=== PATIENT | female | born 1985 | race Caucasian/White ===

== ENCOUNTER → 2019-08-23 08:03 | Outpatient (CLI) | payer SELFPAY ==
--- NOTE | 2019-08-23 08:13 | US_ITS ---
STUDY: ABDOMINAL ULTRASOUND - RIGHT UPPER QUADRANT REASON FOR VISIT: Female, 34 years old abn lft''s TECHNIQUE: Ultrasound evaluation of the right upper quadrant was performed with real-time and static razo-scale imaging. TECHNICAL QUALITY: Adequate. COMPARISON: None. FINDINGS: Liver: The liver measures 15.2 cm. There is normal echogenicity of the liver. The bile ducts are within normal limits. There is hepatic color flow. The direction of portal flow is hepatopetal. There is no demonstrated mass lesion. Gallbladder: Normal distended gallbladder. The gallbladder wall measures 2.7 mm. There is a negative sonographic Beavers''s sign. There is no pericholecystic fluid. There are multiple echogenic structures within the gallbladder, consistent with multiple gallstones. Common Bile Duct (C.B.D.): The common bile duct measures 2.9 mm. Pancreas: Normal size of the head, body and tail of the pancreas. There is normal echogenicity of the pancreas. There is no demonstrated pancreatic mass or cyst. Right Kidney: Normal size of the right kidney. The right kidney measures 10.4 cm x 5.5 cm x 3.6 cm. Normal renal cortex. The right cortex measures 1.0 cm. There is no demonstrated renal mass or cyst. There is no right hydronephrosis. US/Abdomen Limited IMPRESSION: Multiple gallstones. Electronically Signed: Cleve Calderon, at 15:01 EST , Service support ,
== END ==
PROVIDERS: Family Provider Family Medicine; PCP Family Medicine; Referring Provider Family Medicine; Visit Provider Family Medicine
DX: R94.5 Abnormal results of liver function studies (principal)
CPT/HCPCS: 76705

== ENCOUNTER 2019-09-24 10:27 | Day surgery (SDC) | payer SELFPAY ==
--- NOTE | 2019-08-30 02:54 | HP_ITS ---
Intake Vital Signs 08/30/19 BP 119/78 08/30/19 Blood Pressure Location Lt brachial 08/30/19 Position Sitting 08/30/19 Height 5 ft 2 in 08/30/19 Weight: 100 lb 2 oz 08/30/19 BMI 18.3 08/30/19 BP 145/90 H 08/30/19 Blood Pressure Location Lt brachial 08/30/19 Position Sitting 08/30/19 Respiration 16 08/30/19 Pulse 64 08/30/19 Pulse Oximetry (%) 100 Intake Visit Reasons: Gallstones US on 08/23 Chief Complaint: gallstones Marketing Coordinator Required: No Is patient in pain?: No Allergies diphenhydramine HCl [From Benadryl] Adverse Reaction (Intermediate, Verified 08/30/19 08:56) Other APPLES Allergy (Uncoded 06/15/16 11:14) Itching Medications Sertraline HCl [Zoloft] 50 mg PO DAILY 05/07/14 [History Confirmed 08/30/19] levothyroxine 125 mcg capsule 62.5 mcg PO DAILY cap 08/30/19 [History] Is last menstrual period known: No Post menopausal: No Patient : No [facility] Medical History (Updated 08/30/19 @ 14:46 by Rei Kulkarni MD) Abnormal liver function tests (Acute) Cholelithiasis with chronic cholecystitis (Chronic) Gallstones (Acute) Migraine (Acute) Hemorrhoid (Acute) Anxiety (Acute) Hypothyroid (Acute) Surgical History (Updated 08/30/19 @ 08:52 by Brenda Marsh) History of loop electrical excision procedure (LEEP) (Acute) Family History (Updated 08/30/19 @ 08:55 by Brenda Marsh) Mother Thyroid disorder Graves' disease Social History (Updated 08/30/19 @ 14:54 by Rei Kulkarni MD) Smoking Status: Never smoker HPI HPI HPI: LIZBET MORRIS, is a 34 F who presents to the office today for surgical consultation regarding abnormal liver function tests and gallstones. The patient is referred by Dr. Workman and a written copy of my surgical consult and recommendations will return to him. 34-year-old female. She presents with her today. She has had 2 pregnancies and deliveries. A year ago she felt the need to lose weight so through dieting and exercise she apparently lost 35 pounds. She then had trouble stabilizing her weight. She is on thyroid replacement and she had concerns as to whether she was over replaced. By her report an adjustment was made. In further inspection looking for potential source of weight loss laboratory was obtained on August 24, 2019 showing an AST of 64 and ALT of 157 both slightly elevated. Albumin was 4.9 alkaline phosphatase 70. ALT 91 AST 52 total bilirubin 0.03. Hepatitis panel was negative for a B and C. Her white count was 4.8 with a hemoglobin 12.8 hematocrit 39.4 platelet count 185,000. TSH was 1.8. At the [facility] on August 23, 2019 a right upper quadrant ultrasound was obtained. Multiple gallstones are noted. The common bile duct is 2.9 mm. She is being referred for consideration of gallbladder and gallstones as potential etiology to her liver function test abnormality. HPI HPI Surgical H&P: Yes HPI: LIZBET MORRIS, is a 34 F who presents to the office today for ROS General General: Yes weight change; no appetite, fatigue, colon cancer, breast cancer or weakness HEENT HEENT: No difficulty swallowing, eye injury, eye surgery, swollen glands or hoarseness Endo Endocrine: Yes thyroid disease; no diabetes mellitus, thyroid cancer, Hair loss, heat intolerance or cold intolerance Cardio Cardiovascular: No murmur, pacemaker, heart disease, atrial fibrillation, high blood pressure, heart attack, heart stent, palpitations, shortness of breat with exertion or chest pain Psych Psychiatric: Yes anxiety; no depression or hearing voices Resp Respiratory: No shortness of breath, No sleep apnea, No cough, No COPD, No asthma, No emphysema, No wheezing Gastro Gastrointestinal: No abdominal pain, No nausea or vomiting, No diarrhea, No constipation, No blood in stool, No acid reflux, Yes hemorrhoids, No ulcers, Yes gallbladder problem, No black,tarry stools Jose Hematologic: No blood thinners, No blood disorders, No bleeding, No anemia, No blood clots Neuro Neurologic: No weakness Exam Const General: cooperative, healthy appearing Nutritional Appearance: underweight Orientation: alert, awake Other: Slightly anxious, underweight, no acute distress, not jaundiced HENMT Head: normal to inspection Resp Effort & Inspection: normal respiratory effort Auscultation: clear to auscultation bilaterally Cardio Rate: regular rate Rhythm: regular rhythm Heart Sounds: no murmurs GI Palpation: soft, no hepatosplenomegaly Skin General: no rashes or lesions noted Neuro Cognition: normal cognition Extrem General: no calf tenderness bilaterally Psych Affect: anxious affect Assessment & Plan Problems 1. Calculus of gallbladder with chronic cholecystitis without obstruction K80.10 2. Abnormal liver function tests R94.5 Plan We had an extensive discussion regarding treatment options. I have made it very clear to the patient that I do not believe that it is likely that her multiple gallstones are etiologic to her mild liver function test abnormality. We discussed benefit, risk, alternatives to laparoscopic cholecystectomy selective cholangiograms. I did suggest that if we pursue the operation that we also pursue a ultrasound-guided needle core biopsy at that time to facilitate her medical care by Dr. Workman. She is aware of the potential risks and complications of surgery. She is aware the potential risks and complications of nonoperative management. She is been on Zoloft for at least 10 years. Whether this could be contributing is unknown. I have some question as to whether her view of her body size and habitus is abnormal. She states that when she eats she just simply feels like she gets full easily. She denies bulimia. She has had an opportunity to ask and have questions answered. We will schedule and proceed at her discretion. I very much appreciate the kind opportunity of assisting with her surgical care. CC: Dr. Jacinta Kulkarni M.D., F.A.C.S. Coding Level of Care Code 36932 Diagnoses Calculus of gallbladder with chronic cholecystitis without obstruction K80.10 ??Cholelithiasis location: gallbladder ??Biliary obstruction: without biliary obstruction Abnormal liver function tests R94.5 08/30/19 [id number] <Electronically signed by Rei carter MD> Date _ Rei Kulkarni MD I have re-examined the patient. There are no clinical changes since date of exam.
[2019-08-30 08:56] VITALS: BMI 18.3
[2019-09-24 11:03] VITALS: PULSE 83; RESP 16; TEMP 36.4; O2SAT 100; BMI 18.3
--- NOTE | 2019-09-24 11:07 | EKG12_ITS ---
Test Reason : SB Blood Pressure : / mmHG Vent. Rate : 067 BPM Atrial Rate : 067 BPM P-R Int : 158 ms QRS Dur : 078 ms QT Int : 396 ms P-R-T Axes : 074 077 077 degrees QTc Int : 418 ms Normal sinus rhythm Nonspecific ST abnormality Abnormal ECG No previous ECGs available Confirmed by JUMA PRICE, KIMI ([id number]), rewrite editor TRE PORRAS ([id number]) on 09/29/2019 1:01:38 PM Referred By: Rei Kulkarni Confirmed By:KIMI DENNISON MD
[2019-09-24] MEDS: Lactated Ringers 1,000 ML 100 ML IV (11:12)
[2019-09-24 11:25] LABS: Hematocrit 38.5 % (37-47); Hemoglobin 12.7 g/dL (12.0-15.0); Mean Corpuscular Hgb 30.1 pg (27.0-32.0); Mean Corpuscular Volume 91.2 fL (81-99); Mean Platelet Vol. 11.1 fl (6.2-12.0); Platelet Count 176 K/mm3 (150-450); RBC Distribution Width CV 12.1 % (11.6-14.6); RBC Distribution Width SD 40.2 fl (35.1-43.9); Red Blood Count 4.22 M/mm3 (4.2-5.4); White Blood Count 3.8 K/mm3 (4.4-11.0)
[2019-09-24 11:29] LABS: Internal QC Validated? YES +Cl - CLEAR BKGD; Pregnancy, Urine Negative Negative
[2019-09-24 11:30] LABS: International Normalized Ratio 1.2; Prothrombin Time (Protime)PT. 14.7 SECONDS (11.7-14.9)
[2019-09-24 11:31] LABS: Partial Thromboplast Time 28.2 Seconds (24.1-36.2)
[2019-09-24 12:16] LABS: Bedside Glucose 95 mg/dL (70-110)
--- NOTE | 2019-09-24 12:36 | PCM.DC.GS ---
Discharge Diet: Light diet - advance as tolerated - if you have questions about your diet instructions, please talk to you doctor. Discharge Activity: May Not Drive - for 5 days or while taking narcotic pain medicine. May shower in (days): 1 Lifting Restrictions: 10 pounds Call your doctor if your incision/area has: Continuous Slow Oozing, Sudden Increased Bleeding, Increased Pain/ Swelling, Increased Redness, Foul Smelling Discharge Call your doctor if you observe: Fever of 101 or Higher Suture Line Care: Avoid Pulling/Pushing, Avoid Pinching/Bending Additional Dressing/Incision Instructions:: Change or remove dressing in 4 days. Leave steri-strips in place for 1 week. Allergies/Adverse Reactions: Allergies diphenhydramine HCl [From Benadryl] Adverse Reaction (Intermediate, Verified 09/24/19 11:02) Other CONFUSION APPLES Allergy (Uncoded 09/24/19 11:02) Itching EARS ITCHING AND THROAT ITCHING Medications to take at Discharge Sertraline HCl [Zoloft] 50 mg PO QHS 05/07/14 levothyroxine 125 mcg capsule 62.5 mcg PO DAILY cap 08/30/19 Tretinoin/Emol 9/Skin Cleansr1 [Tretin-X 0.1% Combo Pack] 1 ea TP DAILY PRN 09/17/19 Hydrocodone Bitart/Apap 5-325 [[place] 5MG-325MG] 1 tablet PO Q6H PRN PRN 2 Days #5 tablet 09/24/19 The following prescriptions were given: Hydrocodone Bitart/Apap 5-325 [[place] 5MG-325MG] 1 tablet PO Q6H PRN PRN 2 Days #5 tablet PRN Reason: Pain Transmission Status: Sent to [facility]/pharmacy #[id number] Primary Care Physician: Nathan Workman MD [Primary Care Provider] - Test Results: Test results from this visit will be discussed in further detail at your follow-up appointment, if applicable. Please Follow Up With: Rei Kulkarni MD - [phone] When: Call to make an appointment to be seen in about 10 days.
[2019-09-24] MEDS: Cefazolin 2 GM in 0.9% Normal Saline 100 ML IV (12:55)
--- NOTE | 2019-09-24 13:05 | RAD_ITS ---
CLINICAL HISTORY: Female, 34 years old. Cholecystectomy PROCEDURE: CHOLANGIOGRAM - intraoperative FLUOROSCOPY TIME (if supplied): (16) seconds, a cine loop of the cholangiogram was recorded. Placement of the catheter and the procedure were performed by: Dr. Kulkarni Fluoroscopy was provided by SARA Bush , who was present in the room time of the procedure. TECHNIQUE: (All elements of maximal sterile barrier technique followed, including US elements as applicable) After cholecystectomy, cystic duct remnant was cannulized, and contrast injected into the cystic duct remnant retrograde manner. There is normal flow of contrast distally through the common bile duct into the duodenum and retrograde into the common hepatic duct. No ductal dilatation or obstruction noted. No extravasation of contrast outside the biliary tree noted. RAD/Cholangiogram/ O R,Initial IMPRESSION: Normal intraoperative cholangiogram Electronically Signed: Rickey Salguero MD at 8:16 EST , Service support ,
--- NOTE | 2019-09-24 13:05 | GALL_PTH ---
PATIENT: LIZBET MORRIS LOC: [facility] [place] U#:[id number] AGE/SX: 34/F ROOM: RE09/24/[address]: Dr. Rei Kulkarni MD : 1985 BED: DIS: 09/24/2019 SPEC #: [id number] RECD: 09/24/19 14:28 STATUS: NEEL DONNY #: [id number] SHONDA: 09/24/19 13:[address]: Rei Kulkarni DEPT: SURGICAL PATHOLOGY RECD BY: Liam Scott ENTERED: 09/27/19 12:33 SP TYPE: RUTH LOUISE DR: Dr. Nathan Workman MD Tissues: A - Gallbladder, NOS B - Liver, NOS Procedures: PAS with Diastase (control) Trichrome (control) Special Stain Group II PAS Stain (control) Surgery Specimen Level III Surgery Specimen Level V Retic (control) Iron Stain (control) HEADER OPERATION: Laparoscopic cholecystectomy with IOC PRE-OP DIAGNOSIS: Calculus of gallbladder with chronic cholecystitis; abnormal liver function tests TISSUE SUBMITTED: A - Gallbladder, B - Liver biopsy MICROSCOPIC DIAGNOSIS A. Gallbladder, cholecystectomy: Chronic cholecystitis and cholelithiasis. A pericystic lymph node with reactive changes. B. Liver, core biopsy: Liver parenchymal tissue with mild focal microvesicular steatosis and minimal portal chronic inflammation. See microscopic description and comment. SJ:javon 09/28/19 COMMENT Correlation with clinical, laboratory studies and appropriate follow up are necessary. Case has been reviewed in consultation with Dr. Muhammad who concurs with the above diagnosis. IDC:AM MICROSCOPIC DESCRIPTION Slides are reviewed. B. The specimen shows liver parenchymal tissue with preserved lobular architecture. Hepatocytes show focal mild microvesicular steatosis and mild reactive changes. Significant lobular inflammation is not seen. A few portal areas are noted with minimal chronic inflammation. Piecemeal necrosis is not seen. Iron stain shows absent iron. PAS stain with and without diastase do not show any abnormal accumulation of protein. Reticulin and trichrome stains do not show significant fibrosis. All stains are performed with appropriate matched controls. GROSS DESCRIPTION A - Received is one container labeled with the patient's name and designated gallbladder. The specimen consists of a gallbladder measuring 8 cm in length and 3.5 cm in diameter. The external surface is pink-rodriguez, smooth and glistening for the most part. Focally it is granular, hemorrhagic and contains cautery artifact. The gallbladder contains a small amount of green-yellow mucoid bile and distended with multiple multifaceted yellowish stones and stone fragments measuring in aggregate 6 x 6 x 2 cm and 0.1 to 1 cm in greatest dimension. A few of the stones are also present in the cystic duct. The mucosa is bile-stained and without any mass lesions. The gallbladder wall measures 0.1 cm in thickness. Present adjacent to the cystic duct is a rodriguez-pink nodule, a possible lymph node, measuring 0.5 cm in greatest dimension. Marketing Communications Manager sections from the gallbladder and the cystic duct including entire possible lymph node are submitted in one cassette. B - Received in fixative is one container labeled with the patient's name and designated liver biopsy. The specimen consists of an elongated piece of rodriguez-pink soft tissue measuring 1.5 cm in length and 0.1 cm in diameter. The entire specimen is submitted in one cassette. / JOSHUA:javon 09/27/19 TC:3 CPT: 19863, 16284, 03627 x5
[2019-09-24] MEDS: Bupivacaine Mpf 0.5% 30 ML VIAL (14:00)
--- NOTE | 2019-09-24 14:12 | OP.PCM_ITS ---
Problem List (1) Cholelithiasis with chronic cholecystitis Status: Chronic Qualifiers: Cholelithiasis location: gallbladder Biliary obstruction: without biliary obstruction Qualified Code(s): K80.10 - Calculus of gallbladder with chronic cholecystitis without obstruction (2) Abnormal liver function tests Status: Acute Report of Operation Date of Procedure: 09/24/19 Pre-Operative Diagnosis: Chronic cholecystitis, cholelithiasis, abnormal liver function tests Post-Operative Diagnosis: Same Surgery/Procedure Performed:: Laparoscopic cholecystectomy with cholangiograms. Ian-Cut right lobe needle core biopsy Description of Surgical Findings:: Timeout and informed consent was obtained. 34-year-old female was taken to the operating room placed on the table underwent general endotracheal intubation anesthesia. Ancef 2 g given intravenously preoperatively. The abdomen was sterilely prepped and draped. 0.5% Marcaine was used as a local anesthetic. Skin sites were pre-anesthetized. Throughout the procedure total 30 cc was used. A vertical infraumbilical incision was created holding sutures of 0 Vicryl placed varies needle inserted saline drop test performed the abdomen was insufflated CO2 to a pressure of 10 mmHg pressure. To me trocar inserted hemianopsia inserted no concern trocar injuries direct physician 5 m ports were placed in the epigastric right upper quadrant and right lateral upper quadrant. The abdomen is inspected no evidence of any superficial abnormalities the gallbladder was noted to have multiple gallstones within. The hepatocystic angle was completely dissected free. The cystic artery and cystic duct clearly identified. The cystic artery was secured proximally with 2 hemo-lock clips and one distally prior to transecting it. A Hemoclip was placed on the cystic duct stump and incision made in the cystic duct stump and through a 14-gauge Angiocath cholangiogram catheter was inserted. Fluoroscopically controlled cholangiograms were obtained demonstrating normal ductal anatomy and free flow into the small bowel. The clean TRAM cath [facility] were placed on the cystic duct stump prior to transecting it. The gallbladder was tediously dissected free from the liver bed. Hemoclips were further used for hemostasis. Very small opening was made in the gallbladder minimal and no bile spillage rapidly controlled absolutely no stone spillage. The gallbladder was released and placed in retrieval bag. The right upper quadrant was irrigated and aspirated free of excess fluid. Through the Angiocath incision of a 14- gauge core biopsy needle was inserted into the right lobe of the liver a single core was obtained. Hemostasis was obtained with electrocautery. The core was immediately placed on Telfa and placed in formalin for analysis. The liver bed area was inspected. The right upper quadrant irrigated aspirated. The biopsy site inspected and hemostatic. The gallbladder is then exited at the umbilicus fascia enlargement was required. Gallbladder had multiple stones.. The trochars removed under visualization. The abdomen was allowed to deflate the CO2. The fascia at the umbilicus approximate up to 0 Vicryl [id number] suture. Skin edges approximated 4 Monocryl subdermal stitches. Steri-Strips Telfa OpSite dressings applied. Sponge and instrument and needle counts were reported to the surgeon were correct. Blood loss minimal. Specimen gallbladder. Needle core biopsy of the liver. Drains none. Blood loss minimal. Rei Kulkarni M.D., F.A.C.S. Type of Anesthesia:: General Anesthesiologist: Luz Elena Mcallister
[2019-09-24 14:30] VITALS: BP 137/96; BP 140/82; PULSE 63; RESP 18; TEMP 36.5; O2SAT 92
[2019-09-24 14:45] VITALS: BP 121/73; BP 140/82; PULSE 70; RESP 18; O2SAT 97
[2019-09-24 14:56] VITALS: BP 121/87; BP 140/82; PULSE 61; RESP 18; TEMP 36.5; O2SAT 100
[2019-09-24 17:13] VITALS: BP 115/74; BP 140/82; PULSE 64; RESP 16; TEMP 37; O2SAT 100
== END 2019-09-24 17:55 | disposition home or self-care (01) ==
LOC: SDC 10:28 → AC 11:03
PROVIDERS: Anesthesiology; PCP Family Medicine; Referring Provider Surgery; Visit Provider Surgery
PROC: (CPT 47610; principal; 2019-09-24 12:45)
DX: K80.10 Calculus of gallbladder with chronic cholecystitis without obstruction (principal); K76.0 Fatty (change of) liver, not elsewhere classified; K75.9 Inflammatory liver disease, unspecified; R94.5 Abnormal results of liver function studies; E03.9 Hypothyroidism, unspecified; F41.9 Anxiety disorder, unspecified; R63.6 Underweight; Z68.1 Body mass index [BMI] 19.9 or less, adult; Z87.891 Personal history of nicotine dependence
CPT/HCPCS: 47379; 47563; 74300; 76000; 81025; 82962; 85027; 85610; 85730; 88304; 88307; 88313; 93005; J7120; J2405

== ENCOUNTER → 2022-01-17 | Outpatient (CLI) | payer OTHER, SELFPAY ==
--- NOTE | 2022-01-17 08:42 | US_ITS ---
STUDY: ABDOMINAL ULTRASOUND - RIGHT UPPER QUADRANT REASON FOR VISIT: Female, 36 years old eval liver for elastography TECHNIQUE: Ultrasound evaluation of the right upper quadrant was performed with real-time and static razo-scale imaging. TECHNICAL QUALITY: Adequate. COMPARISON: Comparison is made with prior study dated 08/23/2019. FINDINGS: Liver: The liver measures 16.6 cm. There is increased echogenicity consistent with fatty infiltration. The bile ducts are within normal limits. There is hepatic color flow. The direction of portal flow is hepatopetal. There is no demonstrated mass lesion. Gallbladder: The patient is status post cholecystectomy. Common Bile Duct (C.B.D.): The common bile duct measures 5 mm. Pancreas: Normal size of the head, body and tail of the pancreas. There is normal echogenicity of the pancreas. There is no demonstrated pancreatic mass or cyst. Right Kidney: Normal size of the right kidney. The right kidney measures 10.9 cm x 4.9 cm x 4.4 cm. Normal renal cortex. The right cortex measures 1.0 cm. There is no demonstrated renal mass or cyst. There is no right hydronephrosis. US/Abdomen Limited IMPRESSION: Fatty infiltration of the liver. Status post cholecystectomy. Electronically Signed: Cleve Calderon MD at 9:45 EDT ,
--- NOTE | 2022-01-17 08:42 | US_ITS ---
STUDY: ABDOMINAL ULTRASOUND - ELASTOGRAPHY REASON FOR VISIT: Female, 36 years old. Fatty infiltration of the liver. TECHNIQUE: Liver stiffness measurements were obtained on a [employer] RS 85 ultrasound machine using a CA 1-7 probe following the SRU guidelines. 3 measurements were obtained using a 2-D-SWE method. The IQR/M was 23% suggesting a quality data set. TECHNICAL QUALITY: Adequate. COMPARISON: Comparison is made with prior examination done earlier in the day. FINDINGS: Liver: Fatty infiltration of the liver. Median liver stiffness measured 6.5 kPa. US/Elastography Parenchyma/Organ IMPRESSION: Liver stiffness measures 6.5 kPa compatible with F2-F3 (Mild to moderate liver fibrosis) Metavir score. Electronically Signed: Cleve Calderon MD at 9:47 EDT ,
[2022-01-17 11:19] LABS: Erythrocyte Sedimentation Rate 8 mm/hr (0-30)
[2022-01-17 11:20] LABS: Absolute Lymphocyte Count 1.18 X10^3/uL (0.83-4.51); Absolute Neutrophil Count 2.3 X10^3/uL (2.0-7.7); Basophil# 0.01 X10^3/uL; Basophil% 0.3 % (0-1); Eosinophil# 0.02 X10^3/uL; Eosinophils% 0.5 % (0-5); Hematocrit 38.3 % (37-47); Lymphocyte # 1.18 X10^3/ul (0.83-4.51); Lymphocyte % 30.5 % (19-41); Mean Corp Hgb Conc 31.3 g/dL (32-36); Mean Corpuscular Hgb 26.9 pg (27.0-32.0); Mean Corpuscular Volume 85.9 fL (81-99); Mean Platelet Vol. 12.1 fl (6.2-12.0); Monocyte# 0.36 X10^3/uL; Monocyte% 9.3 % (0-10); NRBC Flagged by Analyzer 0 % (0-5); Neutrophil # 2.29 X10^3/uL (2.7-7.7); Neutrophil % 59.1 % (47-70); Platelet Count 181 K/mm3 (150-450); RBC Distribution Width CV 12.7 % (11.6-14.6); RBC Distribution Width SD 39.5 fl (35.1-43.9); Red Blood Count 4.46 M/mm3 (4.2-5.4); White Blood Count 3.9 K/mm3 (4.4-11.0)
[2022-01-17 11:41] LABS: International Normalized Ratio 1.1; Prothrombin Time (Protime)PT. 14.1 SECONDS (11.7-14.9)
[2022-01-17 12:22] LABS: Hemoglobin A1c 5.1 % (3.8-5.6)
[2022-01-17 12:29] LABS: AST(SGOT) 32 U/L (15-37); Alanine Aminotransfer ALT/SGPT 53 U/L (13-56); Albumin, Serum 3.9 g/dL (3.2-5.0); Alkaline Phosphatase 123 U/L (45-117); Anion Gap 6 (5-15); BUN 14 mg/dL (7-18); BUN/Creat Ratio 17.8 RATIO (10-20); Bilirubin, Direct < 0.05 mg/dL (0.00-0.30); CRP < 2.90 mg/L (0.0-3.0); Calcium,Total 9.1 mg/dL (8.5-10.1); Chloride 104 mmol/L (98-107); Creatinine, Serum 0.79 mg/dL (0.55-1.02); EST Glomerular Filtration Rate 89 mL/min (>60); Est Glom Filt Rate - Afr Amer 107 mL/min (>60); Ferritin 5 ng/mL (8-252); Globulin 4.1 g/dL (2.2-4.2); Glucose 153 mg/dL (74-106); LDH 199 U/L (84-246); Potassium 3.6 mmol/L (3.5-5.1); Sodium Level 137 mmol/L (136-145)
[2022-01-18 14:10] LABS: Anti-Centromere B Ab <0.2 AI (0.0-0.9); Anti-Chromatin <0.2 AI (0.0-0.9); Anti-Jo <0.2 AI (0.0-0.9); Anti-Scleroderma-70 AB <0.2 AI (0.0-0.9); RNP Ab 0.2 AI (0.0-0.9); SJOGREN'S Anti-SS-A test > 8.0 AI (0.0-0.9); SJOGREN'S Anti-SS-B test < 0.2 AI (0.0-0.9); Smith Ab <0.2 AI (0.0-0.9)
[2022-01-18 16:41] LABS: Anti-Mitochondrial AB <20.0 Units (0.0-20.0); Anti-dsDNA Ab 2 IU/mL (0-9)
[2022-01-19 01:07] LABS: Angiotensin Convert Enzyme 55 U/L (14-82); Ceruloplasmin 18.9 mg/dL (19.0-39.0); Cytoplasmic Ab (C-ANCA) <1:20 titer (Neg:<1:20); HEPATITIS B SURFACE AG Negative (Negative); Hep C Antibodies 0.1 s/co ratio (0.0-0.9); Hepatitis A IgM Antibody Negative (Negative); Hepatitis B Core AB IgM Negative (Negative)
[2022-01-19 07:34] LABS: Anti-Smooth Muscle ABS 6 Units (0-19); Copper, Serum or Plasma 75 ug/dL (80-158); Haptoglobin 65 mg/dL (33-278); Perinuclear Ab (P-ANCA) <1:20 titer (Neg:<1:20)
== END | disposition home or self-care (01) ==
PROVIDERS: PCP Family Medicine; Referring Provider Nurse Practitioner Adult Health; Visit Provider Nurse Practitioner Adult Health
DX: K76.0 Fatty (change of) liver, not elsewhere classified (principal); R94.5 Abnormal results of liver function studies
CPT/HCPCS: 36415; 76705; 76981; 80053; 80074; 82140; 82164; 82248; 82390; 82525; 82728; 83010; 83036; 83516; 83615; 85025; 85610; 85652; 86140; 86225; 86235; 86256

== ENCOUNTER → 2022-06-24 | Outpatient (CLI) | payer OTHER, SELFPAY ==
[2022-06-24 11:11] LABS: Platelet Count 184 K/mm3 (150-450); RET-HE 25.3 pg (30-35); Reticulocyte Count 1.47 % (0.5-1.5)
[2022-06-24 11:41] LABS: Cholesterol 153 mg/dL (200); GGTP 14 U/L (5-55); High Density Lipoprotein 85 mg/dL; Iron 23 ug/dL (50-170); Iron Binding Capacity,Total 495 ug/dL (250-450); Triglycerides 61 mg/dL; Very Low Density Lipoprotein 12 mg/dL (5-40); Vitamin B12 396 pg/mL (211-911)
[2022-06-25 16:32] LABS: Anti-Mitochondrial AB <20.0 Units (0.0-20.0)
[2022-06-26 01:06] LABS: Endomysial Antibody IgA Negative (Negative); Immunoglobulin A 245 mg/dL (87-352)
[2022-06-26 19:14] LABS: Anti-Smooth Muscle ABS 6 Units (0-19); Zinc, Plasma or Serum 86 ug/dL (44-115); t-Transglutaminase IgA <2 U/mL (0-3)
== END | disposition home or self-care (01) ==
LOC: LAB 09:51
PROVIDERS: PCP Family Medicine; Referring Provider Nurse Practitioner Adult Health; Visit Provider Nurse Practitioner Adult Health
DX: R74.8 Abnormal levels of other serum enzymes (principal); R79.0 Abnormal level of blood mineral; K76.0 Fatty (change of) liver, not elsewhere classified
CPT/HCPCS: 36415; 80061; 82607; 82784; 82977; 83516; 83540; 83550; 84630; 85045; 86255